=== PATIENT | female | born 1965 | race Caucasian/White ===

== ENCOUNTER 2016-07-25 00:08 | Emergency (ER) | payer OTHER ==
[~2016-07-25] VITALS: Ht 162.6 cm; Wt 58.0 kg
[~2016-07-25 00:08] MED LIST: ATOR-54 PO; B-COTAB18 PO; CLON0.5T3 PO; CMP/10 PO; FLUT0.15 NAE; FLUT1INH PO; MECL1TAB42 PO; META-38 PO; PRLSR20 PO; RIZA1TAB11 PO; SUMA100T15 PO; SUMA6KIT2 SQ; TOPI100T20 PO; TRIATAB3 PO; ZFR/8 PO
[2016-07-25 00:26] VITALS: Ht 162.6 cm; Wt 58.0 kg
[2016-07-25] MEDS ORDERED: KETOROLAC TROMETHAMINE 30 MG/ML VIAL IV STA (01:00)
[2016-07-25] MEDS ORDERED: DiphenhydrAMINE HCL 50 MG/ML VIAL IV STA (01:00)
[2016-07-25] MEDS ORDERED: SODIUM CHLORIDE 0.9% 1000ML 1,000 ML IV STA (01:00)
[2016-07-25] MEDS ORDERED: PROCHLORPERAZINE 5 MG/ML 2 ML VIAL IV STA (01:00)
[2016-07-25] MEDS ORDERED: METHYLPREDNISOLONE 125 MG VIAL IV STA (01:03)
--- NOTE | 2016-07-25 01:07 | EMERGENCY ROOM VISIT NOTE ---
History Report prepared by Valarie: Daniela Newman Under the Supervision of: Dr. Fiona Cote M.D. 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 The patient rates her current pain as a 10/10 in severity. The patient states along with her headache she has nausea and dizziness. She denies any vomiting. The patient states that her headache goes from her neck to behind her eyes. The patient states that she suffers from chronic headaches but that today her headache seems to be worse than in the past. The patient states she has self-injecting medications which she used twice tonight with no relief of her headache. She states usually with her headaches one injection of the medication resolves the headache. The patient denies any history of diabetes. 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 Review of Systems See HPI for pertinent positives & negatives. A total of 10 systems reviewed and were otherwise negative. Past Medical & Surgical Medical Problems: (1) Asthma (2) Menieres disease (3) Vertigo Surgical Problems: (1) History of section (2) History of hysterectomy (3) History of tonsillectomy (4) Hx of sinus surgery Family History Cancer Diabetes mellitus Gallbladder disease Heart disease Hypertension Lung disease Social History Smoking Status: Never Smoker Alcohol Use: occasionally Drug Use: none Marital Status: Housing Status: lives with family Occupation Status: employed Current/Historical Medications Scheduled Atorvastatin (Lipitor), 20 MG PO HS B-Complex Vitamins (Vitamin B Complex), 1 TAB PO DAILY Duloxetine Hcl (Cymbalta), 60 MG PO DAILY Fluticasone Furoate-Vilanterol (Breo Ellipta), 1 PUFF PO DAILY Fluticasone Propionate (Nasal) (Flonase Allergy Relief), 2 SPRAY JENELLE HS Omeprazole (Prilosec), 20 MG PO DAILY Topiramate (Topamax), 100 MG PO BID Triamterene/Hctz (Triamterene/Hctz 37.5-25MG), 1 TAB PO DAILY Scheduled PRN Jyinmydtpn-Ushiyzl-Gzhzsitt (Fiorinal), 1 CAP PO UD PRN for Migraine Lorazepam (Ativan), 1 MG PO DAILY PRN for Anxiety Meclizine Hcl (Meclizine Hcl), 25 MG PO TID PRN for Dizziness or Vertigo Metaxalone (Skelaxin), 800 MG PO TID PRN for Muscle Spasms Ondansetron (Ondansetron HCl), 8 MG PO BID PRN for Nausea or Vomiting Prochlorperazine Maleate (Prochlorperazine Maleate), 10 MG PO Q8H PRN for Nausea or Vomiting Rizatriptan Benzoate (Rizatriptan Benzoate), 10 MG PO DAILY PRN for Migraine Sumatriptan Succinate (Imitrex), 1 TAB PO DAILY PRN for HEADACHE Sumatriptan Succinate (Imitrex Statdose), 0.5 ML SQ DAILY PRN for HEADACHE Allergies Coded Allergies: BEE STING (Unverified Allergy, Severe, ANAPHYLAXIS, 07/25/16) Codeine (Unverified Adverse Reaction, Intermediate, NAUSEA, 07/25/16) Cyclobenzaprine (Unverified Adverse Reaction, Intermediate, NAUSEA, ) Physical Exam Vital Signs Date Time Temp Pulse Resp B/P Pulse Ox O2 Delivery O2 Flow Rate FiO2 07/25/16 03:10 36.5 77 18 105/64 97 07/25/16 02:30 77 18 105/64 07/25/16 01:26 56 07/25/16 00:26 36.5 77 18 112/76 97 Physical Exam Vital signs reviewed. General: Well-appearing female, in no significant distress. HEENT: No scleral icterus, PERRLA, neck supple. Atraumatic. No meningeal signs. Cardiovascular: Regular rate and rhythm, no extra sounds. Pulmonary: Clear to auscultation bilaterally, normal work of breathing. Abdomen: Soft, nontender, nondistended, positive bowel sounds. Musculoskeletal: Atraumatic, no peripheral edema. Neurologic: Patient awake alert and oriented x 3, full strength in all 4 extremities. Cranial nerves 2 through 12 grossly intact. Skin: Warm, dry, no rash Medical Decision & Procedures ER Provider Diagnostic Interpretation: CT results as stated below per my review and radiologist interpretation: Preliminary findings Only--See Final Report for Complete Findings: CT HEAD: Comparison with 11/23/15 CT. No ICH, mass effect or edema. No evidence of acute cortical stroke. No midline shift or hydrocephalus. Postsurgical changes involving left maxillary sinus. Paranasal sinus mucosal thickening. No air-fluid levels. Radiologist: Jere Vance M.D Study ready at 0152 and initial results transmitted at 0230. Laboratory Results 07/25/16 00:35 Red Blood Count 4.89, Mean Corpuscular Volume 91.0, Mean Corpuscular Hemoglobin 31.3, Mean Corpuscular Hemoglobin Concent 34.4, Mean Platelet Volume 10.1, Neutrophils (%) (Auto) 67.7, Lymphocytes (%) (Auto) 24.4, Monocytes (%) (Auto) 6.6, Eosinophils (%) (Auto) 0.5, Basophils (%) (Auto) 0.5, Neutrophils # (Auto) 6.30, Lymphocytes # (Auto) 2.27, Monocytes # (Auto) 0.61, Eosinophils # (Auto) 0.05, Basophils # (Auto) 0.05 07/25/16 00:35 Test 07/25/16 00:35 07/25/16 01:18 White Blood Count 9.31 K/uL (4.8-10.8) Red Blood Count 4.89 M/uL (4.2-5.4) Hemoglobin 15.3 g/dL (12.0-16.0) Hematocrit 44.5 % (37-47) Mean Corpuscular Volume 91.0 fL (80-100) Mean Corpuscular Hemoglobin 31.3 pg (25-34) Mean Corpuscular Hemoglobin Concent 34.4 g/dl (32-36) Platelet Count 240 K/uL (130-400) Mean Platelet Volume 10.1 fL (7.4-10.4) Neutrophils (%) (Auto) 67.7 % Lymphocytes (%) (Auto) 24.4 % Monocytes (%) (Auto) 6.6 % Eosinophils (%) (Auto) 0.5 % Basophils (%) (Auto) 0.5 % Neutrophils # (Auto) 6.30 K/uL (1.4-6.5) Lymphocytes # (Auto) 2.27 K/uL (1.2-3.4) Monocytes # (Auto) 0.61 K/uL (0.11-0.59) Eosinophils # (Auto) 0.05 K/uL (0-0.5) Basophils # (Auto) 0.05 K/uL (0-0.2) RDW Standard Deviation 45.0 fL (36.4-46.3) RDW Coefficient of Variation 13.6 % (11.5-14.5) Immature Granulocyte % (Auto) 0.3 % Immature Granulocyte # (Auto) 0.03 K/uL (0.00-0.02) Anion Gap 4.0 mmol/L (3-11) Est Creatinine Clear Calc Drug Dose 51.7 ml/min Estimated GFR () 66.8 Estimated GFR (Non- 57.7 BUN/Creatinine Ratio 15.6 (10-20) Calcium Level 8.6 mg/dl (8.5-10.1) Magnesium Level 2.3 mg/dl (1.8-2.4) Total Bilirubin 0.5 mg/dl (0.2-1) Direct Bilirubin 0.1 mg/dl (0-0.2) Aspartate Amino Transf (AST/SGOT) 17 U/L (15-37) Alanine Aminotransferase (ALT/SGPT) 37 U/L (12-78) Alkaline Phosphatase 83 U/L (45-117) Total Protein 6.9 gm/dl (6.4-8.2) Albumin 3.6 gm/dl (3.4-5.0) Lipase 302 U/L (73-393) Bedside Troponin I 0.000 ng/ml (0-0.045) Laboratory results per my review. Medications Administered Medications (Trade) Dose Ordered Sig/Nettie Route Start Time Stop Time Status Last Admin Dose Admin Sodium Chloride (Nss 1000ml) 1,000 ml @ 999 mls/hr Q1H1M STAT IV 07/25/16 01:00 07/25/16 02:00 DC 07/25/16 01:17 999 MLS/HR Prochlorperazine Edisylate (Compazine Inj) 10 mg NOW STAT IV 07/25/16 01:00 07/25/16 01:03 DC 07/25/16 01:18 10 MG Diphenhydramine HCl (Benadryl Inj) 25 mg NOW STAT IV 07/25/16 01:00 07/25/16 01:03 DC 07/25/16 01:18 25 MG Methylprednisolone Sodium Succinate (Solu-Medrol IV) 125 mg NOW STAT IV 07/25/16 01:03 07/25/16 01:04 DC 07/25/16 01:17 125 MG Hydromorphone HCl (Dilaudid Inj) 0.5 mg NOW STAT IV 07/25/16 02:18 07/25/16 02:19 DC 07/25/16 02:28 0.5 MG ED Course 0059: Past medical records reviewed. The patient was evaluated in room A10. A complete history and physical examination was performed. 0100: Ordered Toradol Inj 30 mg IV, Benadryl Inj 25 mg IV, Compazine Inj 10 mg IV, Sodium Chloride 1,000 ml @ 999 mls/hr IV. 0103: Ordered Solu-Medrol IV 125 mg IV. 0217: I reevaluated the patient and she stated that she was still having some pain. 0218: Ordered Dilaudid Inj 0.5 mg IV. 0300: Upon reevaluation, the patient appeared to have improvement of her symptoms. I discussed findings with her. She verbalized agreement of the treatment plan. The patient was discharged home. Medical Decision Differential diagnosis: Intracranial hemorrhage, intracranial mass, migraine headache, tension headache , sinusitis, meningitis, vertigo This patient was evaluated and appeared to be in no significant distress. IV access was obtained and laboratory work was drawn. The patient was medicated with IV Compazine, IV Benadryl and IV Solu-Medrol. She was hydrated with normal saline solution. CT scan of the head was performed and reveals no evidence of acute intracranial abnormality. On reevaluation, the patient stated that her headache had improved significantly although she needed pain medication. She states previously she has received "something that starts with a D that is very strong" and had significant relief of her pain. The patient was given 0.5 mg of IV Dilaudid and discharged to the care of her family member. She will follow-up with her physician for reevaluation this week and return to the ER for worsening of symptoms or any medical concerns. Impression Primary Impression: Migraine headache Additional Impression: Vertigo Scribe Attestation The scribe's documentation has been prepared under my direction and personally reviewed by me in its entirety. I confirm that the note above accurately reflects all work, treatment, procedures, and medical decision making performed by me. Departure Information Dispostion Home / Self-Care Referrals Raffi Segura D.O. (PCP) Forms HOME CARE DOCUMENTATION FORM, IMPORTANT VISIT INFORMATION Patient Instructions My [facility] Additional Instructions Diagnosis: Migraine headache, vertigo Please drink plenty of clear fluids. Continue your medications as prescribed. Follow-up with your physician this week for reevaluation or Return to the ER for worsening of symptoms or any medical concerns. Problem Qualifiers
[2016-07-25 01:09] LABS: BASO % 0.5 %; BASO ABS # 0.05 K/uL (0-0.2); COMPLETE YES; EOS % 0.5 %; HEMATOCRIT 44.5 % (37-47); IG% 0.3 %; LYMPH % 24.4 %; LYMPH ABS # 2.27 K/uL (1.2-3.4); MEAN CORPUSCULAR HEMOGLOBIN 31.3 pg (25-34); MEAN CORPUSCULAR HGB CONC 34.4 g/dl (32-36); MEAN PLATELET VOLUME 10.1 fL (7.4-10.4); MONO % 6.6 %; NEUT % 67.7 %; PLATELET COUNT 240 K/uL (130-400); RED BLOOD COUNT 4.89 M/uL (4.2-5.4); WHITE BLOOD COUNT 9.31 K/uL (4.8-10.8)
[2016-07-25 01:30] LABS: BUN/CREATININE RATIO 15.6 (10-20); CALCIUM 8.6 mg/dl (8.5-10.1); CREATININE 1.1 mg/dl (0.60-1.20); MAGNESIUM 2.3 mg/dl (1.8-2.4); POTASSIUM 3.7 mmol/L (3.5-5.1)
[2016-07-25] MEDS ORDERED: HYDROmorphone INJ 0.5 MG/0.5 ML SYR IV STA (02:18)
[2016-07-25] MEDS ORDERED: ATV/1 PO (02:46)
[2016-07-25] MEDS ORDERED: BUTACAP36 PO (02:46)
[2016-07-25] MEDS ORDERED: DULO60CA44 PO (02:46)
[2016-07-25 03:10] VITALS: BP 105/64; PULSE 77; TEMP 36.5; O2SAT 97
--- NOTE | 2016-07-25 06:32 | DIAGNOSTIC IMAGING REPORT ---
CT HEAD WITHOUT CONTRAST (CT) CLINICAL HISTORY: Severe headache, nausea, vomiting. COMPARISON STUDY: 03/20/2015 TECHNIQUE: Axial CT of the brain is performed from the vertex to the skull base. IV contrast was not administered for this examination. CT DOSE: 537.48 mGy.cm FINDINGS: No intra or extra-axial mass lesions are visualized. There is no CT evidence of acute cortical infarction. There is no evidence of midline shift. There is no acute hemorrhage. No calvarial fractures are visualized. There is no evidence of pathologic ventricular dilatation. There is mild maxilla sinus mucosal thickening. Post surgical changes are present within the maxillary sinuses. There are partial ethmoidectomies. There is ethmoid sinus mucosal thickening. IMPRESSION: No acute intracranial findings Electronically signed by: Mark Dye M.D. 07/25/2016 6:30 AM Dictated Date/Time: 07/25/2016 6:29 AM
== END 2016-07-25 03:10 | disposition home or self-care (01) ==
LOC: C.EDB 00:10 → C.EDA 03:10
DX: G43.909 Migraine, unspecified, not intractable, without status migrainosus (principal); R42 Dizziness and giddiness; J45.909 Unspecified asthma, uncomplicated; Z80.9 Family history of malignant neoplasm, unspecified; Z83.3 Family history of diabetes mellitus; Z83.79 Family history of other diseases of the digestive system; Z82.49 Family history of ischemic heart disease and other diseases of the circulatory system; Z83.6 Family history of other diseases of the respiratory system; Z79.899 Other long term (current) drug therapy